=== PATIENT | female | born 1955 | race Caucasian/White ===

== ENCOUNTER → 2017-03-17 | Outpatient (CLI) | payer OTHER ==
--- NOTE | 2017-03-17 17:45 | 2DMMODE ---
[place] [address] 2 D/M-MODE ECHOCARDIOGRAM Name: OMEGA HAMLIN Room: [facility]#: [id number] Admission: 03/17/17 Attend Phys: Dennis Radford, Discharge: Date of : 59 Date of Service: 03/17/17 1745 Report #: [id number] THIS REPORT FOR: //name// APPROVED REPORT Study performed: 03/17/2017 14:39:58 EXAM: Comprehensive 2D, Doppler, and color-flow Echocardiogram Patient Location: Out-Patient Status: routine BSA: 1.63 HR: 80 bpm BP: 121/84 mmHg Other Information Study Quality: Good Indications Chest Pain 2D Dimensions LVEF(%): 66.66 (>50%) IVSd: 12.08 (7-11mm) LVOT Diam: 20.09 (18-24mm) LVDd: 42.08 mm PWd: 11.12 (7-11mm) Ascending Ao: 26.45 (22-36mm) LVDs: 26.71 (25-40mm) Aortic Root: 25.47 mm Cole's LVEF: 66.66 % Volumes Left Atrial Volume (Systole) LA ESV Index: 13.90 mL/m2 Aortic Valve AoV Peak Glenn.: 1.59 m/s AO Peak Gr.: 10.10 mmHg LVOT Max P.97 mmHg AO Mean Gr.: 5.28 mmHg LVOT Mean P.15 mmHg LVOT Max V: 1.11 m/s AO V2 VTI: 29.11 cm LVOT Mean V: 0.66 m/s DANIEL (VTI): 2.23 cm2 LVOT V1 VTI: 20.43 cm Mitral Valve E/A Ratio: 1.00 MV Decel. Time: 192.69 [place] [address] 2 D/M-MODE ECHOCARDIOGRAM Name: OMEGA HAMLIN Room: [facility]#: [id number] Admission: 03/17/17 Attend Phys: Dennis Radford, Discharge: Date of : 59 Date of Service: 03/17/17 1745 Report #: [id number] MV E Max Glenn.: 0.70 m/s MV PHT: 55.88 ms MVA (PHT): 3.94 cm2 TDI E/Lateral E': 10.00 E/Medial E': 10.00 Medial E' Glenn.: 0.07 m/s Lateral E' Glenn.: 0.07 m/s Pulmonary Valve PV Peak Glenn.: 1.16 m/s PV Peak Gr.: 5.34 mmHg Left Ventricle The left ventricle is normal size. There is normal LV segmental wall motion. Mild concentric left ventricular hypertrophy. Left ventricular systolic function is normal. The left ventricular ejection fraction is within the normal range. LVEF is 55-60%. The left ventricular diastolic function is normal. Right Ventricle The right ventricle is normal size. The right ventricular systolic function is normal. Atria The left atrium size is normal. The right atrium size is normal. Aortic Valve The aortic valve is normal in structure. No aortic regurgitation is present. There is no aortic valvular stenosis. Mitral Valve The mitral valve is normal in structure. There is no mitral valve regurgitation noted. No evidence of mitral valve stenosis. Tricuspid Valve The tricuspid valve is normal in structure. There is no tricuspid valve regurgitation noted. Pulmonic Valve The pulmonary valve is normal in structure. There is no pulmonic valvular regurgitation. Great Vessels The aortic root is normal in size. IVC is normal in size and collapses with >50% [place] [address] 2 D/M-MODE ECHOCARDIOGRAM Name: OMEGA HAMLIN Room: [facility]#: [id number] Admission: 03/17/17 Attend Phys: Dennis Radford, Discharge: Date of : 59 Date of Service: 03/17/17 1745 Report #: [id number] Pericardium There is no pericardial effusion. <Conclusion> Left ventricular systolic function is normal. The left ventricular ejection fraction is within the normal range. Mild concentric left ventricular hypertrophy. <ELECTRONICALLY SIGNED> By: Ian Gillis MD, FACC 03/17/17 174 44 44 Ian Gillis MD, FAC /INF
--- NOTE | 2017-03-17 17:59 | CARDNUC ---
[place] [address] CARDIAC NUCLEAR IMAGING REPORT Name: OMEGA HAMLIN Room: [facility]#: [id number] Admission: 03/17/17 Attend Phys: Dennis Radford, Discharge: Date of : 59 Date of Service: 03/17/17 1759 Report #: [id number] THIS REPORT FOR: //name// APPROVED REPORT Exam: Nuclear Stress Test Indication: LBBB, Chest pain Patient Location: Out-Patient Room #: 5 Stress Tech: Yolande Cates Stress Nurse: Charo Gallagher RN Ht: 5 ft 3 in Wt: 134 lbs BSA: 1.63 m2 BMI: 23.7 Medical History Medical History: none Medications: none Allergies: benadryl Cardiac Risk Factors: Age, Current Smoker Previous Cardiac Procedures: none NM EXAM: Myocardial Perfusion REST/STRESS Imaging Protocol: Rest Tc-99m/Stress Tc-99m 1 day Resting Data Rest SPECT myocardial perfusion imaging was performed in supine position 45 minutes following the intravenous injection of 11 mCi of Tc-99m Sestamibi. Time of rest injection: 1305 Date: 03/17/2017 The images were gated to evaluate regional wall motion and calculate left ventricular ejection fraction. Administration Route: IV Administration Site: Right Hand Pharmacologic Stress Pharmacologic stress test was performed by injecting Regadenoson 0.4 mg IV push followed by the intravenous injection of 35.8 mCi of Tc-99m Sestamibi. Time of stress injection: 1430 Date: 03/17/2017 Administration Route: IV Administration Site: Right Hand Gated Stress SPECT was performed 45 minutes after stress injection. The images were gated to evaluate regional [place] [address] CARDIAC NUCLEAR IMAGING REPORT Name: OMEGA HAMLIN Room: [facility]#: [id number] Admission: 03/17/17 Attend Phys: Dennis Radford, Discharge: Date of : 59 Date of Service: 03/17/17 1759 Report #: [id number] left ventricular ejection fraction. Study Quality Study: Good Artifact: Mild Breast artifact Study Data At rest, the left ventricular ejection fraction was 70%.. Post stress, the left ventricular ejection was 69%.. TID = 1.02. Perfusion Myocardial perfusion images at rest and stress show a mild intensity defect involving the distal anterior wall and anterior portion of the apex consistent with breast attenuation artifact. No other significant defects are noted. Wall Motion Normal left ventricular wall motion. Nuclear Conclusion ECG Findings: non-diagnostic Clinical Findings: negative for ischemia Nuclear Findings: negative for ischemia Exercise Capacity: not assessed Left Ventricular Function: normal Risk Study: low There is a defect of the distal anterior wall and anterior portion of the apex on both rest and stress images that appear to be consistent with breast attenuation artifact. Wall motion in this region is normal. No other significant fixed or reversible defects are identified. This is a low risk study. Interpreted by: Dennis Radford M.D. [facility] Electronically Approved: 03/17/2017 17:58:59 Stress Test Details Stress Test: Pharmacologic stress was paired with low level exercise. Reason for pharmacologic stress test: LBBB. HR Resting HR: 75 bpm Max Heart Rate (APMHR): 161 bpm Max HR Achieved: 122 bpm Target HR (85% APMHR): 136 bpm % of APMHR: 75 Recovery HR: 90 [place] [address] CARDIAC NUCLEAR IMAGING REPORT Name: OMEGA HAMLIN Room: [facility]#: [id number] Admission: 03/17/17 Attend Phys: Dennis Radford, Discharge: Date of : 59 Date of Service: 03/17/17 1759 Report #: [id number] Resting BP: 111/86 mmHg Max BP: 143/54 mmHg ECG Resting ECG: Sinus Rhythm, LBBB Stress ECG: Sinus Rhythm, LBBB Recovery ECG: Sinus Rhythm, LBBB Clinical Reason for Termination: Completed protocol Exercise duration: 4 min sec Exercise capacity: 2.3 METs Functional Aerobic Impairment 76% The patient had no significant symptoms with Lexiscan infusion. Nurse Comments pt tolerated well Stress ECG Conclusion The baseline 12-lead EKG showed sinus rhythm with left bundle-branch block. EKGs post Lexiscan infusion show sinus rhythm with branch block. <Conclusion> The baseline 12-lead EKG showed sinus rhythm with left bundle-branch block. EKGs post Lexiscan infusion show sinus rhythm with branch block. <ELECTRONICALLY SIGNED> By: Dennis Radford MD, FACC 03/17/171758 58 58 Dennis Radford MD, FACC /INF
== END ==
LOC: M.CRD 03-02 12:15 → M.NUC 12:39 → M.CRD 15:00
DX: I44.7 Left bundle-branch block, unspecified (principal); I51.7 Cardiomegaly

== ENCOUNTER → 2018-03-30 | Outpatient (CLI) | payer OTHER ==
--- NOTE | 2018-03-30 17:41 | CARDNUC ---
[place] [address] CARDIAC NUCLEAR IMAGING REPORT Name: OMEGA HAMLIN Room: [facility]#: [id number] Admission: 03/30/18 Attend Phys: Dennis Radford, Discharge: Date of : 59 Date of Service: 03/30/18 1741 Report #: [id number] THIS REPORT FOR: //name// APPROVED REPORT Imaging Protocol: Rest Tc-99m/Stress Tc-99m 1 day Study performed: 03/30/2018 12:15:00 Indication: Chest pain Patient Location: Out-Patient Stress Tech: Lisbet Chung Stress Nurse: Helena Helton RN NM Tech:AGUS Vines Ht: 5 ft 3 in Wt: 141 lbs BSA: 1.67 m2 BMI: 24.97 Medical History Medical History: Angina, Hyperlipidemia Medications: OTC Fish Oil and Cayenne Pepper Allergies: No known drug allergies Cardiac Risk Factors: Age, Hyperlipidemia Previous Cardiac Procedures: None Pretest Chest Pain Characteristics: No chest pain Exercise History: Indeterminate Physical Disabilities: Knees, LBBB Meds Held (24 hrs): None Resting Data Rest SPECT myocardial perfusion imaging was performed in supine position 30 minutes following the intravenous injection of 11.4 mCi of Tc-99m Sestamibi. Time of rest injection: 1240 Date: 03/30/2018 Time of rest imagin The images were gated to evaluate regional wall motion and calculate left ventricular ejection fraction. Administration Route: IV Administration Site: Right Wrist Pharmacologic Stress Pharmacologic stress test was performed by injecting Regadenoson 0.4 mg IV push over 10-15 seconds immediately followed by the intravenous injection of 33.7 mCi of Tc-99m [place] [address] CARDIAC NUCLEAR IMAGING REPORT Name: OMEGA HAMLIN Room: [facility]#: [id number] Admission: 03/30/18 Attend Phys: Dennis Radford, Discharge: Date of : 59 Date of Service: 03/30/18 1741 Report #: [id number] Sestamibi. Time of stress injection: 1425 Time of stress imagin Administration Route: IV Administration Site: Right Wrist Gated Stress SPECT was performed 40 minutes after stress injection. The images were gated to evaluate regional wall motion and calculate left ventricular ejection fraction. Prone imaging was performed. Stress Test Details Stress Test: Pharmacologic stress was paired with low level exercise. Reason for pharmacologic stress test: LBBB, Knee pain.. HR Max Heart Rate (APMHR): 160 bpm Resting HR: 75 bpm Target HR (85% APMHR): 136 bpm Max HR Achieved: 120 bpm % of APMHR: 75 Recovery HR: 99 bpm BP Resting BP: 123/60 mmHg Max BP: 178/65 mmHg Recovery BP: 121/93 mmHg ECG Resting ECG: Sinus Rhythm, LBBB Stress ECG: Sinus Rhythm, LBBB ST Change: None Arrhythmia: None Recovery ECG: Sinus Rhythm, LBBB Recovery ST Change: None Recovery Arrhythmia: None Clinical Reason for Termination: Completed protocol Stress Symptoms: Lightheaded, Dyspnea, Knee pain. Exercise duration: 4 min 00 sec Exercise capacity: 2.30 METs The patient tolerated Lexiscan infusion without significant cardiac symptoms. Nurse Comments 62 year old female presented with recent HX of CP. Due to LBBB and Knee problems/pain, patient performed a walking lexiscan stress test. Patient [place] [address] CARDIAC NUCLEAR IMAGING REPORT Name: OMEGA HAMLIN Room: [facility]#: [id number] Admission: 03/30/18 Attend Phys: Dennis Radford, Discharge: Date of : 59 Date of Service: 03/30/18 1741 Report #: [id number] well. Recovery unremarkable. Patient escorted to Nuclear Medicine for images. Patient was stable with no complaints at that time. Stress ECG Conclusion The baseline 12-lead EKG shows sinus rhythm with left bundle-branch block. EKGs obtained during and post Lexiscan infusion show sinus rhythm with left bundle-branch block. There were no stress-induced arrhythmias. Study Quality Study: Good Artifact: Mild apical thinning Study Data At rest, the left ventricular ejection fraction was 67%.. Post stress, the left ventricular ejection was 70%.. TID = 0.90. Perfusion There is a focal mild intensity fixed defect of the apex. No other defects fixed or reversible are identified. Wall Motion Normal left ventricular wall motion. Nuclear Conclusion ECG Findings: non-diagnostic Clinical Findings: negative for ischemia Nuclear Findings: negative for ischemia Exercise Capacity: not assessed Left Ventricular Function: normal Risk Study: low Myocardial perfusion images show a focal fixed apical defect. Global wall motion is normal suggesting apical thinning artifact. No other significant fixed or reversible defects were identified. His appears to be a low risk study. <Conclusion> The baseline 12-lead EKG shows sinus rhythm with left bundle-branch block. EKGs obtained during and post Lexiscan infusion show sinus rhythm [place] [address] CARDIAC NUCLEAR IMAGING REPORT Name: OMEGA HAMLIN Room: [facility]#: [id number] Admission: 03/30/18 Attend Phys: Dennis Radford, Discharge: Date of : 59 Date of Service: 03/30/181740 Report #: [id number]. There were no stress-induced arrhythmias. <ELECTRONICALLY SIGNED> By: Dennis Radford MD, [facility] 03/30/181740 40 40 Dennis Radford MD, FACC /INF
== END ==
LOC: M.NUC 03-09 16:33
DX: R07.2 Precordial pain (principal)